=== PATIENT | female | born 1990 | race Two or more races ===

== ENCOUNTER 2016-12-09 06:51 | Emergency (ER) | payer MEDICAID ==
[~2016-12-09] VITALS: Ht 165.1 cm; Wt 68.0 kg
[2016-12-09] MEDS ORDERED: SODIUM CHLORIDE 0.9% 1,000 ML IVB ONE (07:28)
[2016-12-09] MEDS ORDERED: IOHEXOL 300 MG/ML 100ML BOTTLE IJ ONE (07:29)
[2016-12-09] MEDS ORDERED: NALBUPHINE HCL 10 MG/1ml INJECTION IV ONE ×2 (07:30→09:15)
[2016-12-09] MEDS ORDERED: METOCLOPRAMIDE HCL 5MG/ml INJ 2ml VIAL IV ONE ×2 (07:30→11:15)
[2016-12-09 08:47] LABS: Hemoglobin 13.3 g/dL (12.2-16.2); Mean Corpuscular Hemoglobin 27.4 pg (28.0-32.0); Mean Corpuscular Hgb Conc. 32.5 g/dL (32.0-36.0); Mean Corpuscular Volume 84.2 fL (80.0-100.0); Mean Platelet Volume 8.9 fL (7.4-10.4); Platelet Count (auto) 401 10^3/uL (140-450); Red Cell Distribution Width 18.5 % (11.6-16.0); SUSPECT VIEW TRANSMISSION; White Blood Cell 27.2 10^3/uL (4.4-10.8)
[2016-12-09 08:49] LABS: Metamyelocytes % 0; Myelocytes % 0; Promyelocytes % 0; Reactive Lymphocytes 0
[2016-12-09 09:01] LABS: Albumin 3.6 g/dL (3.4-5.0); BUN/Creatinine Ratio 19.8; Calcium 9.5 mg/dL (8.5-10.1); Potassium 4.5 mmol/L (3.5-5.1)
[2016-12-09 09:04] LABS: Bilirubin, Total 1.6 mg/dL (0.2-1.0)
[2016-12-09 09:22] LABS: Ovalocytes FEW; Platelet Estimate Adequate; Stomatocytes Few
[2016-12-09 09:23] LABS: Tear Drop Cells FEW
[2016-12-09 10:22] LABS: Urine Bilirubin Negative (Negative); Urine Blood Negative /uL (Negative); Urine Color Yellow (Yellow); Urine Glucose Normal (Normal); Urine Ketone Negative (Negative); Urine Nitrite Negative (Negative); Urine RBC <1 /hpf (0 - 4); Urine Squamous Epithelial Cell FEW /hpf (<5); Urine Urobilinogen Normal (Negative); Urine pH 7.5 (5.0-8.0)
[2016-12-09] MEDS ORDERED: cefTRIAXone 1GM/50ML D5W 50 ML IV ONE (11:15)
[2016-12-09] MEDS ORDERED: MORPHINE SULFATE 4 MG/ML SYRG IV ONE ×3 (11:30→20:45)
[2016-12-09] MEDS: METOCLOPRAMIDE HCL 5MG/ml INJ 2ml VIAL IV ONE ×2 (11:33→17:32)
[2016-12-09] MEDS ORDERED: READI-CAT 2 (BARIUM SULF)(VANILLA SMOOTHIE) 450ML ONE (13:18)
[2016-12-09] MEDS ORDERED: GASTROGRAFIN 120 ML SOL ONE (15:16)
[2016-12-09] MEDS ORDERED: ONDANSETRON HCL 4 MG/2 ML VIAL IV ONE (20:45)
[2016-12-10] MEDS ORDERED: cefTRIAXone 1GM/50ML D5W 50 ML IV ONE
[2016-12-10] MEDS ORDERED: ONDANSETRON HCL 4 MG/2 ML VIAL IV ONE
[2016-12-10] MEDS ORDERED: MORPHINE SULFATE 4 MG/ML SYRG IV ONE
[2016-12-10] MEDS ORDERED: SODIUM CHLORIDE 0.9% 1,000 ML IV ONE (02:30)
[2016-12-10] MEDS ORDERED: metroNIDAZOLE 500MG/100ML 100 ML IV ONE (02:30)
[2016-12-10 03:00] VITALS: BP 128/78
== END 2016-12-10 03:23 | disposition short-term general hospital (02) ==
LOC: EDBD 06:51 → ER 06:56
DX: A41.9 Sepsis, unspecified organism (principal); K50.812 Crohn's disease of both small and large intestine with intestinal obstruction
CPT/HCPCS: 36415; 71020; 74177; 74250; 80053; 81001; 81025; 82150; 83690; 83735; 84443; 85007; 85027; 93005; 96361; 96365; 96366; 96367; 96375; 96376; 99285; J0696; J2270; J2300; J2405; J2765; J3490; J7030; Q9963; Q9967